=== PATIENT | female | born 1995 | race Caucasian/White ===

== ENCOUNTER 2016-12-03 16:21 | Outpatient (CLI) | payer OTHER ==
[~2016-12-03 16:21] MED LIST: ONDA4TAB35 PO; RANI150T9 PO
--- NOTE | 2016-12-03 18:02 | RADRPT ---
PROCEDURE: OB ultrasound for biophysical profile CLINICAL INDICATION: Biophysical profile. . TECHNIQUE: Multiple sonographic images of the pelvis were obtained. Transabdominal views are obta ined. COMPARISON: 09/18/2016 FINDINGS: Single intrauterine gestation. Presentation: Cephalic. Placenta: Anterior. No evidence of placental abruption. No evidence of placenta previa. breathing movement = 2/2 tone = 2/2 motion = 2/2 AMBROCIO = 2/2 AMBROCIO = 10.9 cm heart rate: 144 beats per minute IMPRESSION: Single intrauterine gestation. Biophysical profile 01/14 RPTAT: AADD .Parvez Mcclure MD, MD Date Time Electronically viewed and signed by .Parvez Mcclure MD, on 12/03/2016 18:02 .B/
--- NOTE | 2016-12-03 18:02 | RADRPT ---
PROCEDURE: US Abdomen limited . CLINICAL INDICATION: Ascites TECHNIQUE: Multiple real-time images were acquired of the patient's abdomen utilizing a high resol ution transducer. COMPARISON: None FINDINGS: No abdominopelvic ascites is noted in the 4 abdominal quadrants. RPTAT: AA IMPRESSION: No ascites. Physician Nita Date Time Electronically viewed and signed by Nagi Becerril Physician on 12/03/2016 18:02 /
[2016-12-03 18:44] LABS: ADD SCAN DIFF NO
[2016-12-03 19:09] LABS: BASOPHILS % 0.2 % (0.0-2.0); EOSINOPHILS # 0.1 10^3/ul (0.0-0.5); EOSINOPHILS % 0.5 % (0.0-7.0); HEMATOCRIT 34.8 % (37.0-47.0); HEMOGLOBIN 11.2 g/dl (12.0-16.0); LYMPHOCYTES # 2.9 10^3/ul (0.8-2.9); LYMPHOCYTES % 21.7 % (15.0-51.0); MEAN CORPUSCULAR HEMOGLOBIN 26.9 pg (29.0-33.0); MEAN CORPUSCULAR HGB CONC 32.2 g/dl (32.0-37.0); MEAN CORPUSCULAR VOLUME 83.5 fl (82.0-101.0); MONOCYTE # 0.8 10^3/ul (0.3-0.9); MONOCYTES % 6.3 % (0.0-11.0); NEUTROPHIL # 9.4 10^3/ul (1.6-7.5); PLATELET COUNT 350 10^3/UL (140-415); RED BLOOD COUNT 4.17 10^6/ul (4.20-5.40); RED CELL DISTRIBUTION WIDTH 14.3 % (11.5-14.5); WHITE BLOOD COUNT 13.2 10^3/ul (4.8-10.8)
[2016-12-03 21:16] LABS: ADD UMIC YES; UR AMORPHOUS CRYSTAL FEW /HPF (NONE SEEN); UR ASCORBIC ACID NEGATIVE (NEGATIVE); UR BACTERIA FEW /HPF (NONE SEEN); UR BILIRUBIN (Dip) NEGATIVE (NEGATIVE); UR BLOOD (Dip) NEGATIVE (NEGATIVE); UR CLARITY CLOUDY (CLEAR); UR COLOR YELLOW (YELLOW); UR GLUCOSE (Dip) NEGATIVE (NEGATIVE); UR KETONES (Dip) NEGATIVE (NEGATIVE); UR LEUKOCYTE ESTERASE (Dip) 2+ Leu/ul (NEGATIVE); UR NITRITE (Dip) NEGATIVE (NEGATIVE); UR RBC 2 /HPF (0-5); UR SPECIFIC GRAVITY (Dip) 1.016 (1.003-1.030); UR SQUAMOUS EPITHELIAL CELL FEW /HPF (FEW); UR TOTAL PROTEIN (Dip) NEGATIVE (NEGATIVE); UR UROBILINOGEN (Dip) NEGATIVE (NEGATIVE)
--- NOTE | 2016-12-03 22:22 | PN ---
Triage Information Date/Time 12/03/16 at 2005 Weeks of Gestation 32weeks : 2 Para: 1 Diabetes: none Hypertention: none Additional information after chasing her sister she started having severe peivic pain which alleviated by resting Objective BP 128/63 [id number] T98.6 Heart Rate: 140's Contractions: None Exam U/A ++ leuko esterase cloudy wbc 31 urine culture sent Results/Medications Result Diagram: 12/03/16 1825 Results 24 hrs Laboratory Tests Test 12/03/16 18:25 12/03/16 20:15 White Blood Count 13.2 #H Red Blood Count 4.17 L Hemoglobin 11.2 L Hematocrit 34.8 L Mean Corpuscular Volume 83.5 Mean Corpuscular Hemoglobin 26.9 L Mean Corpuscular Hemoglobin Concent 32.2 Red Cell Distribution Width 14.3 Platelet Count 350 Mean Platelet Volume 10.0 Neutrophils % 71.0 Lymphocytes % 21.7 Monocytes % 6.3 Eosinophils % 0.5 Basophils % 0.2 Nucleated Red Blood Cells % 0.0 Neutrophils # 9.4 H Lymphocytes # 2.9 Monocytes # 0.8 Eosinophils # 0.1 Basophils # 0.0 Nucleated Red Blood Cells # 0.0 Urine Color YELLOW Urine Clarity CLOUDY A Urine pH 6.0 Urine Specific [place] 1.016 Urine Ketones NEGATIVE Urine Nitrite NEGATIVE Urine Bilirubin NEGATIVE Urine Urobilinogen NEGATIVE Urine Leukocyte Esterase 2+ H Urine Microscopic RBC 2 Urine Microscopic WBC 31 H Urine Squamous Epithelial Cells FEW Urine Amorphous Crystals FEW A Urine Bacteria FEW A Urine Hemoglobin NEGATIVE Urine Glucose NEGATIVE Urine Total Protein NEGATIVE Medications cephalexin 500ng q 6hrs # 28 Imaging Results BPP 8 AMBROCIO 11 Assessment/Plan IUP 32weeks with round ligament syndrome acute cystitis CHRISTIANO TURNER MD Dec 03, 2016 22:14
--- NOTE | 2016-12-03 22:47 | TRIAGE ---
OB Triage Datetime Report Generated by CPN: 12/03/2016 22:47 Datetime: 12/03/2016 21:03 Stage of : OB Triage Labor Evaluation Frequency: 0 Monitor Mode: External Pattern: Normal: <= 5 Contractions in 10 Minutes Resting Tone [place]: Relaxed Heart Rate FHR Baseline Rate: 140 Monitor Mode: External US FHR Baseline Changes: No Baseline Change Variability: Moderate 6-25 bpm Accelerations: 15X15 Decelerations: None Pain Assessment Pain Scale: 3 Pain Presence: Intermittent Pain Type: Ache Pain Location: Abdomen Pain Relief Measures: Comfort Measures Datetime: 12/03/2016 20:18 Labor Evaluation Frequency: 0 Monitor Mode: External Pattern: Normal: <= 5 Contractions in 10 Minutes Resting Tone [place]: Relaxed Heart Rate FHR Baseline Rate: 140 Monitor Mode: External US FHR Baseline Changes: No Baseline Change Variability: Moderate 6-25 bpm Accelerations: 15X15 Decelerations: None Category: Category I Pain Assessment Pain Scale: 3 Pain Presence: Intermittent Pain Type: Ache Pain Location: Abdomen Pain Relief Measures: Comfort Measures Datetime: 12/03/2016 19:30 Stage of : OB Triage Datetime: 12/03/2016 19:18 Labor Evaluation Frequency: OCC Monitor Mode: External Duration (sec)2399: 30-50 Quality: Mild Pattern: Normal: <= 5 Contractions in 10 Minutes Resting Tone [place]: Relaxed Heart Rate FHR Baseline Rate: 140 Monitor Mode: External US FHR Baseline Changes: No Baseline Change Variability: Moderate 6-25 bpm Accelerations: 15X15 Decelerations: None Category: Category I Pain Assessment Pain Scale: 3 Pain Presence: Intermittent Pain Type: Ache Pain Location: Abdomen Pain Relief Measures: Comfort Measures Datetime: 12/03/2016 18:24 Labor Evaluation Frequency: OCC Monitor Mode: External Quality: Mild Pattern: Normal: <= 5 Contractions in 10 Minutes Resting Tone [place]: Relaxed Heart Rate FHR Baseline Rate: 140 Monitor Mode: External US FHR Baseline Changes: No Baseline Change Variability: Moderate 6-25 bpm Accelerations: 15X15 Decelerations: None Category: Category I Pain Assessment Pain Scale: 2 Pain Presence: Intermittent Pain Type: Ache Pain Location: Abdomen Pain Relief Measures: Comfort Measures Datetime: 12/03/2016 17:06 Labor Evaluation Frequency: OCC Monitor Mode: External Quality: Mild Pattern: Normal: <= 5 Contractions in 10 Minutes Resting Tone [place]: Relaxed Heart Rate FHR Baseline Rate: 140 Monitor Mode: External US FHR Baseline Changes: No Baseline Change Variability: Moderate 6-25 bpm Accelerations: 15X15 Decelerations: None Category: Category I Pain Assessment Pain Scale: 3 Pain Presence: Intermittent Pain Type: Cramping Pain Location: Abdomen Pain Relief Measures: Comfort Measures Datetime: 12/03/2016 17:04 Labor Evaluation Frequency: 4-6 Monitor Mode: External Duration (sec)2399: 40-60 Quality: Mild Pattern: Normal: <= 5 Contractions in 10 Minutes Resting Tone [place]: Relaxed Heart Rate FHR Baseline Rate: 145 Monitor Mode: External US FHR Baseline Changes: No Baseline Change Variability: Moderate 6-25 bpm Accelerations: 15X15 Decelerations: None Category: Category I Pain Assessment Pain Scale: 3 Pain Presence: Intermittent Pain Type: Ache Pain Location: Abdomen Pain Relief Measures: Comfort Measures Datetime: 12/03/2016 16:39 EGA: 32.0 Datetime: 12/03/2016 16:17 Time of Arrival: 12/03/2016 16:17 Arrived By: Ambulance Arrived From: Home Chief Complaint: LOWER ABD PAIN Movement: Present Contractions: Denies/Absent Rupture of Membranes: Denies Vaginal Discharge: Denies Recent Sexual Intercouse: Denies Abdominal Trauma: Fight Patient Complaints: Other Datetime: 12/03/2016 16:15 Stage of : OB Triage Assessment Type: Triage Maternal Assessment Level of Consciousness: Fully Conscious DTR's/Clonus: DTRs 2+; No Clonus Headache: Denies Blurred Vision: No Respiratory Effort: Unlabored; Regular Rhythm; Equal Expansion Breath Sounds, Left: Clear and Equal Breath Sounds, Right: Clear and Equal Nausea/Vomiting: Denies RUQ Epigastric Pain: Denies Lower Extremities Edema: None Degree: None Upper Extremities Edema: None Degree: None Facial Edema: None Temperature Route: Oral Fall Risk Assessment History of Falling: (0) No Secondary Diagnosis: (0) No Ambulatory Aid: (0) Bedrest/Nurse Assist IV Therapy: (0) No Gait: (0) Normal/Bedrest/Immobile Mental Status: (0) Oriented to Own Ability Fall Score: 0 Fall Risk Score Definition: No Risk: No action required Labor Evaluation Frequency: 0 Monitor Mode: External Quality: Mild Pattern: Normal: <= 5 Contractions in 10 Minutes Heart Rate FHR Baseline Rate: 140 Monitor Mode: External US FHR Baseline Changes: No Baseline Change Variability: Moderate 6-25 bpm Accelerations: 15X15 Decelerations: None Category: Category I Pain Presence: Intermittent Pain Type: Ache Pain Location: Abdomen Pain Relief Measures: Comfort Measures Vaginal Exam Membrane Status: Intact
== END 2016-12-03 21:50 | disposition home or self-care (01) ==
LOC: OBT 16:21 → L-D 16:22 → OBT 21:50
PROVIDERS: ATTEND Obstetrics & Gynecology
DX: O23.13 Infections of bladder in pregnancy, third trimester (principal); N30.00 Acute cystitis without hematuria; O26.893 Other specified pregnancy related conditions, third trimester; R10.2 Pelvic and perineal pain; Z3A.32 32 weeks gestation of pregnancy
CPT/HCPCS: 76705; 76818; 81001; 85025; 87086; Z7500; G0463

== ENCOUNTER 2017-01-24 12:57 | Inpatient (IN) | payer OTHER ==
[~2017-01-24] VITALS: Ht 167.6 cm; Wt 118.4 kg
[2017-01-24 13:13] VITALS: Ht 167.6 cm; Wt 118.4 kg
[2017-01-24 13:14] VITALS: BP 119/71; RESP 16
[2017-01-24] MEDS ORDERED: PRENAT PO (13:16)
[2017-01-24] MEDS ORDERED: OXYTOCIN 30 UNITS/LR 500 ML IV PRN ×3 (13:30→23:00)
[2017-01-24] MEDS ORDERED: METHYLERGONOVINE 0.2 MG INJ IM PRN ×3 (13:30→23:00)
[2017-01-24] MEDS ORDERED: MISOPROSTOL 200 MCG TAB PR PRN ×3 (13:30→23:00)
[2017-01-24] MEDS ORDERED: IBUPROFEN 600 MG TAB PO PRN (13:30)
[2017-01-24] MEDS ORDERED: OXYTOCIN 30 UNITS/LR 500 ML IV SCH ×2 (13:30→14:00)
[2017-01-24] MEDS ORDERED: CARBOPROST 250 MCG INJ IM PRN ×3 (13:30→23:00)
[2017-01-24] MEDS ORDERED: BUTORPHANOL 2 MG INJ IV PRN (13:30)
[2017-01-24] MEDS ORDERED: LIDOCAINE 1% (MPF) 30 ML INJ INJ PRN (13:30)
[2017-01-24] MEDS: LACTATED RINGER'S 1,000 ML IV SCH ×2 (13:45→15:20)
[2017-01-24] MEDS ORDERED: AMPICILLIN 2 GM/NS (PMX) 100 ML IVPB ONE (14:00)
[2017-01-24 14:14] LABS: BASOPHILS % 0.3 % (0.0-2.0); EOSINOPHILS # 0.2 10^3/ul (0.0-0.5); EOSINOPHILS % 1.3 % (0.0-7.0); HEMATOCRIT 34.4 % (37.0-47.0); HEMOGLOBIN 11.3 g/dl (12.0-16.0); LYMPHOCYTES # 2.2 10^3/ul (0.8-2.9); LYMPHOCYTES % 18.5 % (15.0-51.0); MEAN CORPUSCULAR HEMOGLOBIN 26.1 pg (29.0-33.0); MEAN CORPUSCULAR HGB CONC 32.8 g/dl (32.0-37.0); MEAN CORPUSCULAR VOLUME 79.4 fl (82.0-101.0); MEAN PLATELET VOLUME 10.1 fl (7.4-10.4); MONOCYTE # 0.7 10^3/ul (0.3-0.9); MONOCYTES % 6.2 % (0.0-11.0); NEUTROPHILS % 73.3 % (39.0-77.0); PLATELET COUNT 348 10^3/UL (140-415); RED BLOOD COUNT 4.33 10^6/ul (4.20-5.40); RED CELL DISTRIBUTION WIDTH 15.1 % (11.5-14.5)
[2017-01-24] MEDS ORDERED: MINERAL OIL LIGHT 10 ML VIAL TOP ONE (14:30)
[2017-01-24 14:35] LABS: INR 0.97; PROTIME 12.9 Sec (12.2-14.2)
[2017-01-24] MEDS ORDERED: FENTAnyl 2MCG/ML-ROPIV 0.2% 100 ML ONE (15:12)
[2017-01-24] MEDS ORDERED: NALOXONE (0.4 MG/ML) INJ IV PRN ×2 (15:30→19:30)
[2017-01-24] MEDS ORDERED: FENTAnyl 2MCG/ML-ROPIV 0.2% 100 ML BAG EPI SCH (15:30)
--- NOTE | 2017-01-24 16:04 | RADRPT ---
PROCEDURE: US OB. CLINICAL INDICATION: Size and dates TECHNIQUE: Multiple sonographic images of the pelvis and gravid uterus were obtained. The images were reviewed on a PACS workstation. COMPARISON: 12/03/2016 FINDINGS: There is a single viable intrauterine gestation. Cardiac activity is present with 150 beats per min algaaciq. There is a vertex presentation. The placenta is anterior. There is no evidence for an abruption or placenta previa. Measurements were made in order to determine age. The results are as follows: BPD =9.4 cm HC =34.3 cm AC =39.7 cm FL =7.4 cm Estimated gestational age of approximately 38 weeks and 4 days based on ultrasound measurements. Clinical age: 39 weeks and 3 days. The estimated date of delivery is 02/03/17, based on ultrasound measurements. The EFW = 4399 g, >97%, based on LMP age. RPTAT: AA IMPRESSION: Single viable intrauterine gestation of approximately 38 weeks and 4 days based on ultrasound measu rements. .Ace Adams MD, Date Time Electronically viewed and signed by .Ace Adams MD, on 01/24/2017 16:04 .S/
[2017-01-24] MEDS ORDERED: AMPICILLIN 1 GM/NS (PMX) 50 ML IVPB SCH (17:00)
[2017-01-24] MEDS ORDERED: CEFAZOLIN 2 GM/50 ML (PMX) 50 ML IVPB ONE (18:20)
[2017-01-24] MEDS ORDERED: LACTATED RINGER'S 1,000 ML IV PRN (19:00)
[2017-01-24] MEDS ORDERED: LIDOCAINE 2% (SDV) 5 ML INJ ONE (19:07)
[2017-01-24] MEDS ORDERED: METOCLOPRAMIDE 10 MG INJ ONE (19:07)
[2017-01-24] MEDS ORDERED: OXYTOCIN 10 UNIT INJ ONE (19:07)
[2017-01-24] MEDS ORDERED: ONDANSETRON 4 MG INJ ONE (19:07)
[2017-01-24] MEDS ORDERED: DEXAMETHASONE 4 MG/ML 1 ML INJ ONE (19:07)
[2017-01-24] MEDS ORDERED: KETOROLAC 30 MG INJ ONE (19:07)
[2017-01-24] MEDS ORDERED: PHENYLephrine (100 MCG/ML) 5ML SYG ONE (19:13)
[2017-01-24] MEDS ORDERED: morphine SULFATE/PF (10 MG/10 ML) INJ ONE (19:13)
[2017-01-24] MEDS ORDERED: morphine 4 MG/ML VIAL IV PRN (19:30)
[2017-01-24] MEDS ORDERED: ONDANSETRON 4 MG INJ IV PRN (19:30)
[2017-01-24] MEDS ORDERED: NALBUPHINE HCL (10 MG/1 ML) INJ IV PRN (19:30)
[2017-01-24] MEDS ORDERED: morphine 2 MG INJ IV PRN (19:30)
[2017-01-24] MEDS ORDERED: ACETAMINOPHEN 500 MG TAB PO PRN (19:30)
[2017-01-24] MEDS ORDERED: HYDROmorphONE 1 MG/ML SYG IV PRN ×2 (19:30)
[2017-01-24] MEDS ORDERED: DIPHENHYDRAMINE 50 MG INJ IV PRN (19:30)
[2017-01-24] MEDS ORDERED: HYDROCODONE/APAP (5/325) TAB PO PRN ×2 (19:30→23:00)
--- NOTE | 2017-01-24 19:58 | HP ---
Date/Time of Note Date/Time of Note DATE: 01/24/17 TIME: 19:53 OB - History Hx of Present Free Text/Dictation 21-year-old female 2 para 1 at 39+ weeks gestation admitted for elective induction of labor because of possible macrosomia An estimation of weight was obtained upon admission confirming estimation of weight over 4300 g After discussion with the patient possibility of shoulder dystocia and possible Erb's palsy, patient decided to have primary is more of a delivery Last Menstrual Period: Apr 24, 2016 Estimated Due Date: Jan 29, 2017 : 2 Para: 1 Care: Good Care Ultrasounds: Normal mid trimester US Obstetrical Complications: None, Other (Possible macrosomia) Medical Complications: None Past Family/Social History * Past Medical, Surgical, Family and Obstetric Histories reviewed from chart. Blood Type: B+ Rubella: immune RPR/VDRL: Negative GBS Status: Positive HBsAG: Negative OB Admission Exam Vital Signs Vital Signs Vital Signs Date Time Temp Pulse Resp B/P Pulse Ox O2 Delivery O2 Flow Rate FiO2 01/24/17 13:14 97.7 16 119/71 Room Air Physical Exam HEENT: WNL Heart: Rhythm Normal Lungs: Clear, Equal Abdomen: WNL Extremities: Normal Reflexes: Normal Cervical Dilatation: 2cm Effacement: 50% Station: -3 Membranes: Intact Heart Rate: 140's Accelerations: Accelerations Present Decelerations: No Decelerations Varibility: Moderate Contractions on Admission: >10 Minutes Apart Last 72 hours Lab Results CBC & BMP 01/24/17 13:43 OB Assessment/Plan Other Assessment: Term gestation Possible macrosomia Patient elected to have a section as mode of delivery Other plan: We will proceed with primary TIGRE VU MD Jan 24, 2017 19:58
--- NOTE | 2017-01-24 20:00 | OPR ---
Operative Report Planned Procedure Procedure date Jan 24, 2017 Procedure(s) Primary Performed by: TIGRE VU MD Assisting provider: CHRISTIANO TURNER MD Anesthesiologist: TRICIA PAINTING MD Pre-procedure diagnosis Term gestation Possible macrosomia Patient desires Anesthesia Type: spinal Procedure Description Under satisfactory anaesthesia a Pfannenstiel incision was made two fingerbreadth above and parallel to the symphysis of pubis. Incision was extended laterally to the border of the Recti muscles on either sides. Incision was carried down with sharp and blunt dissection until fascia was reached. Anterior Recti muscle fascia was incised in mid portion and incision extended laterally to the border of skin incision. Fascia was mobilized from muscle superiorly and Recti muscles were from midline using sharp and blunt dissection. Peritoneum was visualized; Avoiding bowel and bladder it was incised . Incision was extended superiorly and inferiorly. Bladder blade was placed. Posterior peritoneum covering the lower segment of the uterus and lower segment of the uterus were incised. Incision was extended laterally to the border of Round Lig. on either sides and baby was delivered from OP. position . Amniotic fluid appeared clear. Cord blood was obtained and cord had 3 vessels . Placenta was delivered spontaneously and appeared intact and complete. Intrauterine cavity was rubbed with a laparotomy sponge. Uterine incision was closed in 2 layers using running stitches of No1 Monocryl. Hemostasis appeared secure. Ovaries and Fallopian tubes were within normal limits. Announcing needle, lap sponge and instrument count to be correct abdomen was closed in layers as follows: Peritoneum and Recti muscles with running stitches of 20 Vicryl. Fascia with running stitch of No 1 PDS. Subcutaneous tissue with running stitches of 20 Chromic and skin was closed using james. Patient tolerated the procedure well and was transferred to [facility] in good condition. Post-Procedure Post-procedure diagnosis Macrosomia Status post Findings: Live Baby, 4600 g Normal right and left ovaries and fallopian tube Specimen removed: No Complications: None Pt Condition post procedure: stable Disposition: PACU Physician Certification I, the undersigned physician, hereby certify that I have discussed the procedure described in this consent form with this patient (or the patient's legal practice representative), including: * The risk and benefits of the procedure; * Any adverse reactions that may reasonably be expected to occur; * Any alternative efficacious methods of treatment which may be medically viable ; * The potential problems that may occur during recuperation; * Potential for blood transfusion and associated risks/benefits; and * Any research or economic interest I may have regarding this treatment. I further certify that the patient/legally responsible person was encouraged to ask question and that all questions were answered. TIGRE VU MD Jan 24, 2017 20:00
[2017-01-24] MEDS: OXYTOCIN 30 UNITS/LR 500 ML IV SCH ×2 (20:42→22:22)
[2017-01-24] MEDS: KETOROLAC 30 MG INJ IV PRN (21:52)
[2017-01-24 23:00] VITALS: BP 125/78; PULSE 87; RESP 19
[2017-01-24] MEDS ORDERED: LANOLIN 7 GM TUBE TOP PRN (23:00)
[2017-01-24] MEDS ORDERED: NA PHOSPHATE/BIPHOS 133 ML ENEMA PR PRN ×2 (23:00→23:30)
[2017-01-24] MEDS: CEFAZOLIN 2 GM/50 ML (PMX) 50 ML IV SCH (23:27)
[2017-01-24] MEDS: CLINDAMYCIN 300 MG CAP PO SCH (23:31)
[2017-01-25] MEDS: LACTATED RINGER'S 1,000 ML IV SCH ×4 (02:57→22:51)
[2017-01-25 04:30] VITALS: BP 101/53; PULSE 94; RESP 17
--- NOTE | 2017-01-25 04:36 | OPPN ---
Date/Time of Note Date/Time of Note DATE: 01/25/17 TIME: 04:36 Post-Anesthesia Notes Post-Anesthesia Note Last documented vital signs Vital Signs Date Time Temp Pulse Resp B/P Pulse Ox O2 Delivery O2 Flow Rate FiO2 01/24/17 23:00 98.0 87 19 125/78 Room Air Activity: WNL Respiratory function: WNL Cardiovascular function: WNL Mental status: Baseline Pain reasonably controlled: Yes Hydration appropriate: Yes Nausea/Vomiting absent: Yes TRICIA PAINTING MD Jan 25, 2017 04:36
[2017-01-25] MEDS: IBUPROFEN 800 MG TAB PO SCH ×3 (06:00→22:07)
[2017-01-25] MEDS: CEFAZOLIN 2 GM/50 ML (PMX) 50 ML IV SCH ×2 (06:29→14:36)
[2017-01-25] MEDS: CLINDAMYCIN 300 MG CAP PO SCH ×4 (06:29→23:32)
[2017-01-25 07:40] VITALS: BP 103/66; PULSE 97; RESP 20
[2017-01-25] MEDS ORDERED: BISACODYL 10 MG SUPP PR ONE (10:00)
[2017-01-25 10:18] LABS: BASOPHILS % 0.2 % (0.0-2.0); EOSINOPHILS # 0.1 10^3/ul (0.0-0.5); EOSINOPHILS % 0.4 % (0.0-7.0); HEMATOCRIT 27.7 % (37.0-47.0); HEMOGLOBIN 8.9 g/dl (12.0-16.0); LYMPHOCYTES # 3.4 10^3/ul (0.8-2.9); LYMPHOCYTES % 23.5 % (15.0-51.0); MEAN CORPUSCULAR HGB CONC 32.1 g/dl (32.0-37.0); MEAN PLATELET VOLUME 10.1 fl (7.4-10.4); MONOCYTE # 0.9 10^3/ul (0.3-0.9); MONOCYTES % 6.1 % (0.0-11.0); NEUTROPHILS % 69.4 % (39.0-77.0); PLATELET COUNT 292 10^3/UL (140-415); RED BLOOD COUNT 3.42 10^6/ul (4.20-5.40); RED CELL DISTRIBUTION WIDTH 15.1 % (11.5-14.5); WHITE BLOOD COUNT 14.5 10^3/ul (4.8-10.8)
[2017-01-25] MEDS: KETOROLAC 30 MG INJ IV PRN (14:36)
[2017-01-25 15:30] VITALS: BP 109/70; PULSE 95; RESP 20
--- NOTE | 2017-01-25 15:33 | PN ---
Date/Time of Note Date/Time of Note DATE: 01/25/17 TIME: 15:32 Assessment/Plan VTE Prophylaxis VTE Prophylaxis Intervention: ambulation Lines/Catheters IV Catheter Type (from Nrsg): Peripheral IV Assessment/Plan Assessment/Plan Ambulate Monitor vital signs Advance diet Repeat CBC Subjective 24 Hr Interval Summary Passing flatus No bowel movement Constitutional: BM, ambulates, flatus, improved, no complaints, urine output Pain Control: well controlled Exam/Review of Systems Vital Signs Vitals Vital Signs Date Time Temp Pulse Resp B/P Pulse Ox O2 Delivery O2 Flow Rate FiO2 01/25/17 07:40 98.5 97 20 103/66 Room Air Intake and Output 01/24/17 01/24/17 01/25/17 15:00 23:00 07:00 Intake Total 801 ml 2000 ml 550 ml Output Total 1225 ml 300 ml Balance 801 ml 775 ml 250 ml Exam Free Text/Dictation Abdomen is soft bowel sounds present Incision is covered Abdomen is slightly tender around the incision Constitutional: alert, oriented, well developed Psych: nl mood/affect, no complaints Head: atraumatic, normocephalic Eyes: EOMI, nl conjunctiva, nl lids, nl sclera ENMT: mucosa pink and moist, nl external ears & nose, nl lips & teeth, nl nasal mucosa & septum Neck: non-tender, supple Respiratory: clear to auscultation, normal air movement Cardiovascular: nl pulses, regular rate and rhythm Gastrointestinal: nl liver, spleen, non-tender, soft Drains None Musculoskeletal: nl extremities to inspection, nl gait and stance Extremities: normal pulses Neurological: ABSTRACTOR II-XII intact, nl mental status, nl speech, nl strength Skin: nl turgor, rash or lesions Lymph: nl lymph nodes Results Result Diagram: 01/25/17 0953 TIGRE VU MD Jan 25, 2017 15:33
[2017-01-25 20:30] VITALS: BP 110/68; PULSE 101; RESP 19
[2017-01-25] MEDS: SENNA/DOCUSATE NA (8.6MG/50MG) TAB PO SCH (20:42)
[2017-01-25] MEDS: OXYCODONE/ACETAMINOPHEN (5/325) TAB PO PRN (20:42)
[2017-01-25] MEDS ORDERED: IBUPROFEN 800 MG TAB PO SCH (22:00)
[2017-01-26] VITALS: BP 114/66; PULSE 76; RESP 17
[2017-01-26 04:15] VITALS: BP 89/56; PULSE 95; RESP 20
[2017-01-26] MEDS: CLINDAMYCIN 300 MG CAP PO SCH ×4 (05:38→23:03)
[2017-01-26] MEDS: IBUPROFEN 800 MG TAB PO SCH ×3 (05:38→21:16)
[2017-01-26] MEDS: OXYCODONE/ACETAMINOPHEN (5/325) TAB PO PRN ×2 (06:40→23:02)
[2017-01-26] MEDS: LACTATED RINGER'S 1,000 ML IV SCH (06:51)
[2017-01-26 07:50] VITALS: BP 115/72; PULSE 91; RESP 18
[2017-01-26] MEDS: SENNA/DOCUSATE NA (8.6MG/50MG) TAB PO SCH ×2 (09:21→21:16)
[2017-01-26 09:39] LABS: BASOPHILS % 0.3 % (0.0-2.0); EOSINOPHILS # 0.1 10^3/ul (0.0-0.5); EOSINOPHILS % 0.5 % (0.0-7.0); HEMATOCRIT 27.2 % (37.0-47.0); HEMOGLOBIN 8.5 g/dl (12.0-16.0); LYMPHOCYTES # 2.5 10^3/ul (0.8-2.9); LYMPHOCYTES % 17.6 % (15.0-51.0); MEAN CORPUSCULAR HEMOGLOBIN 25.4 pg (29.0-33.0); MEAN CORPUSCULAR HGB CONC 31.3 g/dl (32.0-37.0); MEAN CORPUSCULAR VOLUME 81.4 fl (82.0-101.0); MEAN PLATELET VOLUME 9.8 fl (7.4-10.4); MONOCYTE # 0.9 10^3/ul (0.3-0.9); MONOCYTES % 6.2 % (0.0-11.0); PLATELET COUNT 288 10^3/UL (140-415); RED BLOOD COUNT 3.34 10^6/ul (4.20-5.40); RED CELL DISTRIBUTION WIDTH 15.4 % (11.5-14.5); WHITE BLOOD COUNT 14.3 10^3/ul (4.8-10.8)
--- NOTE | 2017-01-26 11:28 | DS ---
Date/Time of Note Date/Time of Note Home next day DATE: 01/26/17 TIME: 11:26 Obstetrical Discharge Record Final Diagnosis Final Diagnosis: Term delivered Other Final Diagnosis Status post primary delivery Section Section: Primary Primary Indication Microsomia Complications Augmentation: Yes Induction: Yes Condition on Discharge Physical Assessment Last Vitals: See nurse's notes Voiding: Yes Bowel Movement: Yes Breast: Soft, non-tender, Filling Fundus: Firm Abdomen and Incision: Soft bowel sounds present Incision has no induration or erythema, and is healing well Episiotomy: Not applicable Calf Tenderness: No Patient Condition: Good TIGRE VU MD Jan 26, 2017 11:28
--- NOTE | 2017-01-26 11:29 | DS ---
Date/Time of Note Date/Time of Note Home next day DATE: 01/26/17 TIME: 11:28 Discharge Summary Admission/Discharge Info Admit Date/Time Jan 24, 2017 at 12:57 Discharge Date/Time January 27, 2017 Discharge Diagnosis Status post primary delivery Patient Condition: Good Procedures Primary section Hx of Present Illness 21-year-old female admitted for induction of labor and elected to have primary C -section because of macrosomia Hospital Course Uncomplicated Home Meds Active Scripts Ondansetron Hcl* (Zofran* ODT) 4 mg -ODT Tab.disper, 4 MG PO Q6 Y for NAUSEA AND /OR VOMITING, #5 TAB Prov:SE GILMAN M. 02/03/15 Ranitidine Hcl* (Zantac*) 150 Mg Tablet, 150 MG PO BID for EPIGASTRIC PAIN, #14 TAB Prov:SE GILMAN M. 02/03/15 Reported Medications Multivit/Min/Fol Ac/Iron/Pren* ( S*) 1 Tab Tab, 1 TAB PO DAILY, TAB 01/24/17 Follow-up Plan 2 3 days in clinic for staple removal Primary Care Provider Not On Staff Doctor Time spent on discharge: > 30 minutes Pending Labs Laboratory Tests Test 01/26/17 09:11 White Blood Count 14.310^3/ul (4.8-10.8) Red Blood Count 3.3410^6/ul (4.20-5.40) Hemoglobin 8.5g/dl (12.0-16.0) Hematocrit 27.2% (37.0-47.0) Mean Corpuscular Volume 81.4fl (82.0-101.0) Mean Corpuscular Hemoglobin 25.4pg (29.0-33.0) Mean Corpuscular Hemoglobin Concent 31.3g/dl (32.0-37.0) Red Cell Distribution Width 15.4% (11.5-14.5) Platelet Count 70319^3/UL (140-415) Mean Platelet Volume 9.8fl (7.4-10.4) Neutrophils % 75.0% (39.0-77.0) Lymphocytes % 17.6% (15.0-51.0) Monocytes % 6.2% (0.0-11.0) Eosinophils % 0.5% (0.0-7.0) Basophils % 0.3% (0.0-2.0) Nucleated Red Blood Cells % 0.0/100WBC (0.0-0.0) Neutrophils # (Manual) 1110^3/ul (1.7-7.5) Lymphocytes # 2.510^3/ul (0.8-2.9) Monocytes # 0.910^3/ul (0.3-0.9) Eosinophils # 0.110^3/ul (0.0-0.5) Basophils # 0.010^3/ul (0.0-0.1) Nucleated Red Blood Cells # 0.010^3/ul (0.0-0.0) TIGRE VU MD Jan 26, 2017 11:29
--- NOTE | 2017-01-26 11:30 | PD.PPDC ---
[employer] Discharge Instruction Provider Information Physician Information 21-year-old female had primary section because of macrosomia Diagnosis Final Diagnosis: Status post Condition Patient Condition: Good Diet Diet: Resume Regular Diet Activity/Restrictions Activity: October Shower Restrictions: No Exercising No Lifting Nothing in the Vagina Return to Work or School: Mar 31, 2017 Wound/Drain Care Instructions Wound/Drain Care Instructions: Keep clean and dry Follow-up Follow-up with Physician: 2, 3, Day/Days (In clinic for staple removal) Return to clinic for [employer] Instructions: Fever greater than 101 Chills OB Instructions: Breast Tenderness Depression Surgical Instructions: Incisional Drainage Incisional Redness TIGRE VU MD Jan 26, 2017 11:30
[2017-01-26] MEDS ORDERED: IBUP800T25 PO (11:31)
[2017-01-26 16:00] VITALS: BP 116/74; PULSE 103; RESP 18
[2017-01-26 20:00] VITALS: BP 109/71; PULSE 90; RESP 18
[2017-01-27 04:00] VITALS: BP 114/78; PULSE 98; RESP 18
[2017-01-27] MEDS: CLINDAMYCIN 300 MG CAP PO SCH ×2 (05:24→12:00)
[2017-01-27] MEDS: IBUPROFEN 800 MG TAB PO SCH (05:24)
[2017-01-27 06:58] LABS: BASOPHIL # 0.1 10^3/ul (0.0-0.1); BASOPHILS % 0.4 % (0.0-2.0); EOSINOPHILS # 0.2 10^3/ul (0.0-0.5); EOSINOPHILS % 2.1 % (0.0-7.0); HEMATOCRIT 26.6 % (37.0-47.0); HEMOGLOBIN 8.5 g/dl (12.0-16.0); LYMPHOCYTES # 3.7 10^3/ul (0.8-2.9); LYMPHOCYTES % 32.2 % (15.0-51.0); MEAN CORPUSCULAR HEMOGLOBIN 26.3 pg (29.0-33.0); MEAN CORPUSCULAR VOLUME 82.4 fl (82.0-101.0); MEAN PLATELET VOLUME 9.9 fl (7.4-10.4); MONOCYTE # 0.6 10^3/ul (0.3-0.9); MONOCYTES % 5.5 % (0.0-11.0); NEUTROPHILS % 59.4 % (39.0-77.0); PLATELET COUNT 308 10^3/UL (140-415); RED BLOOD COUNT 3.23 10^6/ul (4.20-5.40); RED CELL DISTRIBUTION WIDTH 15.3 % (11.5-14.5); WHITE BLOOD COUNT 11.4 10^3/ul (4.8-10.8)
[2017-01-27 08:30] VITALS: BP 109/59; PULSE 104; RESP 18
[2017-01-27] MEDS ORDERED: DIPHTH/TET/ACEL PERTUSS (ADULT) 0.5 ML VIAL IM* ONE (09:00)
[2017-01-27] MEDS ORDERED: MEASLES,MUMPS,RUBELLA VACCINE INJ SC* ONE (09:00)
[2017-01-27] MEDS: SENNA/DOCUSATE NA (8.6MG/50MG) TAB PO SCH (09:31)
== END 2017-01-27 13:05 | disposition home or self-care (01) | DRG 766 ==
LOC: L-D 12:57 → PP1 22:48
PROVIDERS: ADMIT Obstetrics & Gynecology; ATTEND Obstetrics & Gynecology
PROC: 10D00Z1 Extraction of Products of Conception, Low, Open Approach (ICD-10-PCS; principal; 2017-01-24 13:00)
DX: O36.63X0 Maternal care for excessive fetal growth, third trimester, not applicable or unspecified (principal); Z37.0 Single live birth; Z3A.38 38 weeks gestation of pregnancy
CPT/HCPCS: 62319; 76815; 85025; 85610; 85730; 86592; 86900; 86901; 87340; 90715; 99464; J0290; J0690; J1100; J1200; J1885; J2274; J2370; J2405; J2590; J2765; J3010; J7120

== ENCOUNTER 2017-12-23 10:59 | Emergency (ER) | END 2017-12-23 12:42 | disposition home or self-care (01) ==

== ENCOUNTER 2019-01-30 12:40 | Inpatient (IN) | payer OTHER ==
[~2019-01-30] VITALS: Ht 165.1 cm; Wt 90.0 kg
[~2019-01-30 12:40] MED LIST changes: +HYDR-4011 PO; +IBUP-1542 PO; +IBUP-1544 PO; -ONDA4TAB35 PO; +ONDA4TAB8 PO; +PRENAT PO; -RANI150T9 PO
[2019-01-30] MEDS ORDERED: LIDOCAINE/MYLANTA 40 ML BTL PO ONE (15:00)
[2019-01-30] MEDS ORDERED: FAMOTIDINE 20 MG TAB PO ONE (15:00)
[2019-01-30] MEDS ORDERED: ACETAMINOPHEN 325 MG TAB PO PRN ×2 (16:30)
[2019-01-30] MEDS ORDERED: ONDANSETRON 4 MG INJ IV PRN ×2 (16:30)
[2019-01-30] MEDS ORDERED: NACL 0.9% 3 ML SYG IV SCH (16:30)
[2019-01-30 17:30] VITALS: BP 122/76; PULSE 76; RESP 16
[2019-01-30 18:43] VITALS: Ht 165.1 cm; Wt 90.0 kg
[2019-01-30] MEDS: SOD CHLORIDE 0.9% 1,000 ML IV SCH ×2 (18:46→23:37)
[2019-01-30] MEDS: PIPER-TAZO 3.375 GM IV (PMX) 100 ML IVPB SCH ×2 (18:46→23:39)
[2019-01-30 18:53] VITALS: BP 129/77; PULSE 80; RESP 18
[2019-01-30 20:41] VITALS: BP 109/65; PULSE 69; RESP 18
[2019-01-31 00:54] VITALS: BP 100/58; PULSE 68; RESP 18
[2019-01-31 02:00] VITALS: BP 109/61; PULSE 69; RESP 18
[2019-01-31] MEDS: PIPER-TAZO 3.375 GM IV (PMX) 100 ML IVPB SCH ×4 (05:13→23:39)
[2019-01-31] MEDS: PANTOPRAZOLE 40 MG INJ IV SCH (05:13)
[2019-01-31 07:26] VITALS: BP 111/70; PULSE 66; RESP 18
[2019-01-31] MEDS: SOD CHLORIDE 0.9% 1,000 ML IV SCH ×2 (10:33→23:42)
[2019-01-31 14:27] VITALS: BP 108/63; PULSE 75; RESP 16
[2019-01-31 20:06] VITALS: BP 102/65; PULSE 70; RESP 17
[2019-02-01 02:55] VITALS: BP 101/56; PULSE 73; RESP 16
[2019-02-01] MEDS: PANTOPRAZOLE 40 MG INJ IV SCH (05:38)
[2019-02-01] MEDS: PIPER-TAZO 3.375 GM IV (PMX) 100 ML IVPB SCH ×4 (05:38→23:52)
[2019-02-01 07:30] VITALS: BP 109/64; PULSE 66; RESP 17
[2019-02-01] MEDS: SOD CHLORIDE 0.9% 1,000 ML IV SCH ×2 (10:58→21:07)
[2019-02-01] MEDS ORDERED: INDOMETHACIN 50 MG SUPP PR ONE (13:00)
[2019-02-01 13:30] VITALS: BP 112/68; PULSE 68; RESP 17
[2019-02-01 20:00] VITALS: BP 118/70; PULSE 70; RESP 18
[2019-02-02] VITALS (12 sets, daily range): BP systolic 101–141; BP diastolic 51–78; PULSE 77–102; RESP 16–21
[2019-02-02] MEDS: PIPER-TAZO 3.375 GM IV (PMX) 100 ML IVPB SCH ×3 (05:34→19:48)
[2019-02-02] MEDS: SOD CHLORIDE 0.9% 1,000 ML IV SCH ×2 (05:34→16:16)
[2019-02-02] MEDS: PANTOPRAZOLE 40 MG INJ IV SCH (05:34)
[2019-02-02] MEDS ORDERED: INDOMETHACIN 50 MG SUPP PR ONE (14:30)
[2019-02-02] MEDS ORDERED: PROPOFOL 200 MG INJ ONE (18:00)
[2019-02-02] MEDS ORDERED: SUCCINYLCHOLINE CHLORIDE 100 MG/5 ML SYG IV ONE (18:00)
[2019-02-02] MEDS ORDERED: LIDOCAINE 2% (SDV) 5 ML INJ ONE (18:00)
[2019-02-02] MEDS ORDERED: SEVOFLURANE 15 MIN ONE (18:00)
[2019-02-02] MEDS ORDERED: MIDAZOLAM 1 MG/ML 2 ML INJ IV PRN (19:00)
[2019-02-02] MEDS ORDERED: DIPHENHYDRAMINE 50 MG INJ IV PRN (19:00)
[2019-02-02] MEDS ORDERED: ONDANSETRON 4 MG INJ IV PRN (19:00)
[2019-02-02] MEDS ORDERED: MEPERIDINE 25 MG INJ IV PRN (19:00)
[2019-02-02] MEDS ORDERED: FENTAnyl 50 MCG/ML VIAL IV PRN ×3 (19:00)
[2019-02-02] MEDS ORDERED: METOCLOPRAMIDE 10 MG INJ IV PRN (19:00)
[2019-02-03] MEDS: PIPER-TAZO 3.375 GM IV (PMX) 100 ML IVPB SCH ×3 (00:11→11:34)
[2019-02-03 02:00] VITALS: BP 128/75; PULSE 78; RESP 18
[2019-02-03] MEDS: PANTOPRAZOLE 40 MG INJ IV SCH (05:51)
[2019-02-03 08:00] VITALS: BP 134/70; PULSE 74; RESP 16
[2019-02-03 14:49] VITALS: BP 124/76; PULSE 68; RESP 14
== END 2019-02-03 15:50 | disposition home or self-care (01) | DRG 446 ==
LOC: FTE 12:40 → PP2 16:05 → MS3 23:05 → OBSVTOIN 02-01 14:41
PROVIDERS: ADMIT Internal Medicine; ATTEND Hospitalist
PROC: 0FC98ZZ Extirpation of Matter from Common Bile Duct, Via Natural or Artificial Opening Endoscopic (ICD-10-PCS; principal; 2019-02-02 17:00)
DX: K80.50 Calculus of bile duct without cholangitis or cholecystitis without obstruction (principal); K76.0 Fatty (change of) liver, not elsewhere classified; E66.9 Obesity, unspecified; Z68.33 Body mass index [BMI] 33.0-33.9, adult; R74.0 Nonspecific elevation of levels of transaminase and lactic acid dehydrogenase [LDH]; E80.6 Other disorders of bilirubin metabolism; Z87.19 Personal history of other diseases of the digestive system
CPT/HCPCS: 74181; 74330; 76705; 80053; 80061; 80076; 81001; 81025; 83036; 83690; 83735; 84100; 84443; 85025; 85610; 86704; 86709; 86803; 87340; 99217; C9113; G0378; J2543; J7030